=== PATIENT | male | born 1980 | race Caucasian/White ===

== ENCOUNTER 2017-10-25 09:15 | Observation (INO) | payer OTHER ==
[~2017-10-25] VITALS: Ht 185.4 cm; Wt 82.7 kg
--- OUTSIDE RECORDS SUMMARY | 2017-10-25 09:20 | XMS REPORT | Continuity of Care Document ---
Author Author [facility] Address Unknown Phone Unavailable Allergies There is no data. Medications There is no data. Problems Date Dx Coded Attending Type Code Diagnosis Diagnosed By 12/10/2014 WONG ROME DO 466.0 BRONCHITIS, ACUTE Procedures There is no data. Results There is no data. Encounters ACCT No. Visit Date/Time Discharge Status Pt. Type Provider Facility Loc./Unit Complaint [id number] 12/10/2014 13:39:00 12/10/2014 23:59:59 CLS Outpatient WONG ROME DO
--- OUTSIDE RECORDS SUMMARY | 2017-10-25 09:20 | XMS REPORT ---
Author LUIS FERNANDO Esquivel Organization [employer] Address Unknown Phone Unavailable Care Team Providers Care Carbonizer Tester Name Role Phone LUIS FERNANDO CONRAD CP Unavailable Allergies, Adverse Reactions, Alerts Substance Reaction Event Type N.K.D.A. Info Not Available Non Drug Allergy Problems Problem Type Condition Code Onset Dates Condition Status Assessment Elevated blood pressure reading without diagnosis of hypertension R03.0 Active Assessment Eczema, unspecified eczema L30.9 Active Assessment Routine adult health maintenance Z00.00 Active Assessment Ringworm B35.9 Active Assessment Ganglion cyst M67.40 Active Medications Medication Code System Code Instructions Start Date End Date Status Dosage Nystatin-Triamcinolone [facility] [id number] UNIT/GM-% Externally Twice a day Jun 25, 2015 Jul 23, 2015 1 application to affected area Procedures Procedure Coding System Code Date Office Visit, Est Pt., Level 4 CPT-4 22752 Jun 25, 2015 Vital Signs Date/Time: Jun 25, 2015 Temperature 98.4 F Weight 190.6 lbs Height 73 in BMI 25.14 Index Blood Pressure Diastolic 90 mmHg Blood Pressure Systolic 152 mmHg Cardiac Monitoring Heart Rate 90 bpm Results No Known Results Summary Purpose [employer] Submission
[2017-10-25] MEDS ORDERED: LORazepam INJ 2 MG/ML (ATIVAN) VIAL IVP ONE (10:00)
[2017-10-25] MEDS ORDERED: ASPIRIN 81 MG CHEW (CHILDREN'S ASA) PO ONE (10:00)
--- NOTE | 2017-10-25 10:02 | ED Chest Pain ---
General Chief Complaint: General Problems/Pain Stated Complaint: HIGH BP Nursing Triage Note: AMB TO ROOM REPORTS HAS NOT FELT WELL SINCE HAVING FLU 1 MONTH AGO. TODAY WAS WALKING UP AND DOWN STAIRS FELT DIZZY AND SOA AFTER Nursing Sepsis Screen: No Definite Risk Source: patient, family Exam Limitations: no limitations History of Present Illness Date Seen by Provider: Oct 25, 2017 Time Seen by Provider: 09:42 Initial Comments This 37-year-old gentleman presents to the emergency room after feeling dizzy and short of air walking up stairs. These are stairs he walks daily and has not had this problem in the past. He notes his blood pressure was significantly elevated with a systolic pressure up to 190 at home. He reports his systolic blood pressures usually in the 130s. He reports having an upper respiratory "chest cold" for 1-2 weeks. About a month ago he had a flulike syndrome as well. This morning he has had shortness of air, dizziness, disequilibrium, disorientation, subtle chest tightness, productive cough, and some vision changes. He states he can see the pulsation of his heart in his vision. Patient was sent to the ER from the [facility]. Patient admits to drinking 3 or 4 beers daily for many years. His long-term girlfriend confirms this usual quantity. His last alcohol consumption was last night. Patient also admits to marijuana use but denies any other recreational drugs. He drinks tea but denies any other use of stimulants. Patient reports having a similar episode of symptoms with high blood pressure about 10 years ago for which he was referred to [facility]. He reports his blood pressure has not been treated since then. Patient is a tobacco smoker. Allergies and Home Medications Allergies Coded Allergies: No Known Drug Allergies (Unverified , 10/25/17) Home Medications Metoprolol Succinate 100 Mg Tab.er.24h, 100 MG PO DAILY Prescribed by: JUAN LUIS FREIRE on 10/26/17 1057 Review of Systems Constitutional: no symptoms reported EENTM: See HPI Respiratory: See HPI Cardiovascular: See HPI Gastrointestinal: No Symptoms Reported Genitourinary: No Symptoms Reported Musculoskeletal: no symptoms reported Skin: no symptoms reported Psychiatric/Neurological: See HPI Endocrine: No Symptoms Reported Hematologic/Lymphatic: No Symptoms Reported Past Gycdxtr-Pqvfcq-Axhucr Hx Patient Social History Alcohol Use: Regular Use Number of Drinks Today: 4 Alcohol Beverage of Choice: Beer Recreational Drug Use: Yes Drug of Choice: marijuana Smoking Status: Current Everyday Smoker Recent Foreign Travel: No Contact w/Someone Who Travel: No Recent Infectious Disease Expo: No Surgeries History of Surgeries: No Respiratory History of Respiratory Disorde: No Cardiovascular History of Cardiac Disorders: Yes Cardiac Disorders: Hypertension Neurological History of Neurological Disord: No Genitourinary History of Genitourinary Disor: No Gastrointestinal History of Gastrointestinal Di: No Musculoskeletal History of Musculoskeletal Dis: No Endocrine History of Endocrine Disorders: No HEENT History of HEENT Disorders: No Cancer History of Cancer: No Psychosocial History of Psychiatric Problem: Yes (alcohol dependence) Integumentary History of Skin or Integumenta: No Blood Transfusions History of Blood Disorders: No Family Medical History Significant Family History: Diabetes Physical Exam Vital Signs Vital Signs - First Documented 10/25/17 10/25/17 09:19 11:17 Temp 98.4 Pulse 117 Resp 18 B/P (MAP) 169/90 (116) Pulse Ox 96 Capillary Refill : Less Than 3 Seconds General Appearance: No Apparent Distress, WD/WN HEENT: PERRL/EOMI, TMs Normal, Normal ENT Inspection Neck: Normal Inspection Respiratory: Lungs Clear, Normal Breath Sounds, No Accessory Muscle Use, No Respiratory Distress Cardiovascular: No Edema, No Murmur, Tachycardia Gastrointestinal: Normal Bowel Sounds, Non Tender, Soft Extremity: Normal Inspection, No Pedal Edema Neurologic/Psychiatric: Alert, Oriented x3, No Motor/Sensory Deficits, Normal 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 Finger to nose and heel to alegre normal) Skin: Normal Color, Warm/Dry Progress/Results/Core Measures Results/Orders Lab Results Laboratory Tests Test 10/25/17 09:21 10/25/17 10:31 Range/Units White Blood Count 10.3 4.3-11.0 10^3/uL Red Blood Count 5.35 4.35-5.85 10^6/uL Hemoglobin 16.9 13.3-17.7 G/DL Hematocrit 49 40-54 % Mean Corpuscular Volume 92 80-99 FL Mean Corpuscular Hemoglobin 32 25-34 PG Mean Corpuscular Hemoglobin Concent 34 32-36 G/DL Red Cell Distribution Width 12.5 10.0-14.5 % Platelet Count 174 130-400 10^3/uL Mean Platelet Volume 12.3 H 7.4-10.4 FL Neutrophils (%) (Auto) 62 42-75 % Lymphocytes (%) (Auto) 29 12-44 % Monocytes (%) (Auto) 8 0-12 % Eosinophils (%) (Auto) 1 0-10 % Basophils (%) (Auto) 0 0-10 % Neutrophils # (Auto) 6.4 1.8-7.8 X 10^3 Lymphocytes # (Auto) 3.0 1.0-4.0 X 10^3 Monocytes # (Auto) 0.8 0.0-1.0 X 10^3 Eosinophils # (Auto) 0.1 0.0-0.3 10^3/uL Basophils # (Auto) 0.0 0.0-0.1 10^3/uL Prothrombin Time 13.4 12.2-14.7 SEC INR Comment 1.0 0.8-1.4 Activated Partial Thromboplast Time 29 24-35 SEC D-Dimer 0.27 0.00-0.49 UG/ML Sodium Level 139 135-145 MMOL/L Potassium Level 3.7 3.6-5.0 MMOL/L Chloride Level 103 98-107 MMOL/L Carbon Dioxide Level 25 21-32 MMOL/L Anion Gap 11 5-14 MMOL/L Blood Urea Nitrogen 9 7-18 MG/DL Creatinine 0.77 0.60-1.30 MG/DL Estimat Glomerular Filtration Rate > 60 BUN/Creatinine Ratio 12 Glucose Level 114 H 70-105 MG/DL Calcium Level 9.4 8.5-10.1 MG/DL Magnesium Level 2.1 1.8-2.4 MG/DL Total Bilirubin 1.1 H 0.1-1.0 MG/DL Aspartate Amino Transf (AST/SGOT) 25 5-34 U/L Alanine Aminotransferase (ALT/SGPT) 26 0-55 U/L Alkaline Phosphatase 104 40-136 U/L Myoglobin 25.6 10.0-92.0 NG/ML Troponin I < 0.30 <0.30 NG/ML Total Protein 7.6 6.4-8.2 GM/DL Albumin 4.5 3.2-4.5 GM/DL Thyroid Stimulating Hormone (TSH) 0.82 0.35-4.94 UIU/ML Free Thyroxine 0.96 0.70-1.48 NG/DL Serum Alcohol < 10 <10 MG/DL Urine Opiates Screen NEGATIVE NEGATIVE Urine Oxycodone Screen NEGATIVE NEGATIVE Urine Methadone Screen NEGATIVE NEGATIVE Urine Propoxyphene Screen NEGATIVE NEGATIVE Urine Barbiturates Screen NEGATIVE NEGATIVE Ur Tricyclic Antidepressants Screen NEGATIVE NEGATIVE Urine Phencyclidine Screen NEGATIVE NEGATIVE Urine Amphetamines Screen NEGATIVE NEGATIVE Urine Methamphetamines Screen NEGATIVE NEGATIVE Urine Benzodiazepines Screen NEGATIVE NEGATIVE Urine Cocaine Screen NEGATIVE NEGATIVE Urine Cannabinoids Screen NEGATIVE NEGATIVE My Orders Orders - EDWARD MENJIVAR MD Cbc With Automated Diff (10/25/17 09:55) Magnesium (10/25/17 09:55) Ekg Tracing (10/25/17 09:55) Cardiac Profile 1 (10/25/17 09:55) Comprehensive Metabolic Panel (10/25/17 09:55) Myoglobin Serum (10/25/17 09:55) Protime With Inr (10/25/17 09:55) Partial Thromboplastin Time (10/25/17 09:55) O2 (10/25/17 09:55) Monitor-Rhythm Ecg Trace Only (10/25/17 09:55) Aspirin Chewable Tablet (Baby Aspirin Ch (10/25/17 10:00) Saline Lock/Iv-Start (10/25/17 09:55) Thyroid Stimulating Hormone (10/25/17 09:55) Free T4 (Free Thyroxine) (10/25/17 09:55) Alcohol (10/25/17 09:55) Fibrin Degradation Products (10/25/17 09:55) Drug Screen Stat (Urine) (10/25/17 09:55) Lorazepam Injection (Ativan Injection) (10/25/17 10:00) Chest Pa/Lat (2 View) (10/25/17 10:02) Ns Iv 1000 Ml (Sodium Chloride 0.9%) (10/25/17 11:05) Metoprolol Succinate (Xl) Tab (Toprol Xl (10/25/17 13:00) Medications Given in ED Vital Signs/I&O Vital Sign - Last 12Hours 10/25/17 10/25/17 09:19 11:17 Temp 98.4 Pulse 117 109 Resp 18 18 B/P (MAP) 169/90 (116) 139/92 (108) Pulse Ox 96 Intake and Output 10/26/17 00:00 Intake Total 1000 ml Balance 1000 ml Blood Pressure Mean: 116 Progress Note #1: Time: 10:09 Progress Note Patient seen and examined. Thorough workup is being pursued. Patient is tachycardic and hypertensive which could relate to daily alcohol consumption with no alcohol since last night. Ativan will be administered. Progress Note #2: Progress Note Patient's pressure did improve after Ativan. However, patient remained tachycardic. A liter of IV fluids was administered but he still remained tachycardic. Case was discussed with Dr. Rowell who would like the patient admitted. He recommended Toprol-XL 100 mg orally which was administered in the ER. Aspirin 324 mg was also administered in the ER. Patient was admitted to the medicine service with a cardiology consult. The alcohol withdrawal protocol was added to his orders. ECG Initial ECG Impression Date: Oct 25, 2017 Initial ECG Impression Time: 10:14 Initial ECG Rate: 101 Initial ECG Rhythm: S.Tach Comment Sinus tachycardia with no ST elevation or depression. No abnormal intervals or axis deviation. Diagnostic Imaging Diagonstic Imaging: Xray Plain Films/CT/US/NM/MRI: chest Comments Chest x-ray viewed by me and report reviewed. See report below: NAME: EDWARD MERIDA [facility] REC#: [id number] PT STATUS: REG ER : 1980 PHYSICIAN: EDWARD MENJIVAR MD ADMIT DATE: 10/25/17/ER Draft Date of Exam:10/25/17 CHEST PA/LAT (2 VIEW) INDICATION: Shortness of breath and hypertension. TECHNIQUE: PA and lateral films of the chest were obtained at 1059 hours. FINDINGS: The heart and mediastinal silhouette are normal in appearance. The lungs are clear. There is no pneumothorax or pleural fluid. IMPRESSION: Negative chest. Dictated on workstation # [id number] Dict: 10/25/17 1058 Trans: 10/25/17 1105 [id number] Interpreted by: MAURICIO KAY MD Departure Communication (Admissions) Time/Spoke to Admitting Phy: 13:10 Time/Spoke to Consulting Phy: 12:45 Impression Impression: Primary Impression: Chest tightness Additional Impressions: Hypertensive urgency Dyspnea on exertion Sinus tachycardia Alcohol dependence Qualified Codes: F10.239 - Alcohol dependence with withdrawal, unspecified Disposition: ADMITTED INPATIENT Condition: Improved Admissions Decision to Admit Reason: Admit from ER (General) Decision to Admit/Date: Oct 25, 2017 Time/Decision to Admit Time: 12:45 Departure-Patient Inst. Referrals: NO,LOCAL PHYSICIAN (PCP/Family) Primary Care Physician Scripts Metoprolol Succinate (Metoprolol Succinate) 100 Mg Tab.er.24h 100 MG PO DAILY, #30 TAB Prov: JUAN LUIS FREIRE DO 10/26/17 EDWARD MENJIVAR MD Oct 25, 2017 10:02
[2017-10-25 10:06] LABS: BASOPHILS % (AUTO) 0 % (0-10); EOSINOPHILS # (AUTO) 0.1 10^3/uL (0.0-0.3); EOSINOPHILS % (AUTO) 1 % (0-10); HEMATOCRIT 49 % (40-54); HEMOGLOBIN 16.9 G/DL (13.3-17.7); LYMPHOCYTES % (AUTO) 29 % (12-44); MEAN CORPUSCULAR HEMOGLOBIN 32 PG (25-34); MEAN CORPUSCULAR HGB CONC 34 G/DL (32-36); MEAN CORPUSCULAR VOLUME 92 FL (80-99); MEAN PLATELET VOLUME 12.3 FL (7.4-10.4); MONOCYTES # (AUTO) 0.8 X 10^3 (0.0-1.0); MONOCYTES % (AUTO) 8 % (0-12); NEUTROPHILS # (AUTO) 6.4 X 10^3 (1.8-7.8); NEUTROPHILS % (AUTO) 62 % (42-75); PLATELET COUNT 174 10^3/uL (130-400); RED BLOOD COUNT 5.35 10^6/uL (4.35-5.85); RED CELL DISTRIBUTION WIDTH 12.5 % (10.0-14.5); WHITE BLOOD COUNT 10.3 10^3/uL (4.3-11.0)
[2017-10-25 10:08] LABS: PROTHROMBIN TIME PATIENT 13.4 SEC (12.2-14.7)
[2017-10-25 10:17] LABS: ALANINE AMINOTRANSFERASE 26 U/L (0-55); ALBUMIN 4.5 GM/DL (3.2-4.5); ALKALINE PHOSPHATASE 104 U/L (40-136); BILIRUBIN,TOTAL 1.1 MG/DL (0.1-1.0); BUN/CREATININE RATIO 12; CALCIUM 9.4 MG/DL (8.5-10.1); CARBON DIOXIDE 25 MMOL/L (21-32); CHLORIDE 103 MMOL/L (98-107); CREATININE SERUM 0.77 MG/DL (0.60-1.30); GFR ESTIMATED > 60; GLUCOSE 114 MG/DL (70-105); MAGNESIUM 2.1 MG/DL (1.8-2.4); POTASSIUM 3.7 MMOL/L (3.6-5.0); SODIUM 139 MMOL/L (135-145); TOTAL PROTEIN 7.6 GM/DL (6.4-8.2)
[2017-10-25 10:38] LABS: MYOGLOBIN SERUM 25.6 NG/ML (10.0-92.0)
[2017-10-25 10:47] LABS: AMPHETAMINE SCREEN, URINE NEGATIVE (NEGATIVE); BARBITURATE SCREEN URINE NEGATIVE (NEGATIVE); BENZODIAZEPINES SCREEN URINE NEGATIVE (NEGATIVE); CANNABINOID SCREEN, URINE NEGATIVE (NEGATIVE); COCAINE SCREEN URINE NEGATIVE (NEGATIVE); METHADONE STAT NEGATIVE (NEGATIVE); METHAMPHETAMINE SCREEN URINE S NEGATIVE (NEGATIVE); OPIATE SCREEN URINE NEGATIVE (NEGATIVE); OXYCODONE STAT NEGATIVE (NEGATIVE); PROPOXYPHENE STAT NEGATIVE (NEGATIVE); TRICYCLIC ANTIDEPRESSANTS SCRE NEGATIVE (NEGATIVE)
[2017-10-25 11:00] LABS: FREE T4 (FREE THYROXINE) 0.96 NG/DL (0.70-1.48)
[2017-10-25] MEDS ORDERED: NS IV 1000 ML 1,000 ML IV ONE (11:05)
--- NOTE | 2017-10-25 11:05 | Diagnostic Imaging Report ---
INDICATION: Shortness of breath and hypertension. TECHNIQUE: PA and lateral films of the chest were obtained at 1059 hours. FINDINGS: The heart and mediastinal silhouette are normal in appearance. The lungs are clear. There is no pneumothorax or pleural fluid. IMPRESSION: Negative chest. Dictated by: Dictated on workstation # [id number]
[2017-10-25 11:17] VITALS: BP 139/92
[2017-10-25] MEDS ORDERED: meTOproloL SUCCINATE 50 MG (TOPROL XL) TAB PO SCH (13:00)
--- OUTSIDE RECORDS SUMMARY | 2017-10-25 14:07 | XMS REPORT | Continuity of Care Document ---
Author Author [facility] Address Unknown Phone Unavailable Allergies There is no data. Medications There is no data. Problems Date Dx Coded Attending Type Code Diagnosis Diagnosed By 12/10/2014 WONG ROME DO 466.0 BRONCHITIS, ACUTE Procedures There is no data. Results There is no data. Encounters ACCT No. Visit Date/Time Discharge Status Pt. Type Provider Facility Loc./Unit Complaint [id number] 12/10/2014 13:39:00 12/10/2014 23:59:59 CLS Outpatient WONG ROME DO
[2017-10-25] MEDS ORDERED: ONDANSETRON 4 MG (ZOFRAN) ORAL DISSOLVE TAB PO PRN (15:00)
[2017-10-25] MEDS ORDERED: SENNA W/DOCUSATE (SENOKOT S) TABLET PO PRN (15:00)
[2017-10-25] MEDS ORDERED: ONDANSETRON 4 MG/2 ML (SDV) Z0FRAN IV PRN (15:00)
[2017-10-25] MEDS ORDERED: LORazepam INJ 2 MG/ML (ATIVAN) VIAL IM/IV PRN (15:00)
[2017-10-25] MEDS ORDERED: ANTACID SUSP 30 ML UDC (MYLANTA) PO PRN (15:00)
--- NOTE | 2017-10-25 15:19 | Consultation-Cardiology ---
HPI-Cardiology Cardiology Consultation: Date of Consultation 10/25/17 Time Seen by Provider: 14:45 Date of Admission 10-25-17 Attending Physician Darron Colon MD Admitting Physician Elizabeth,Local Physician Consulting Physician DIVYA MCCULLOUGH HPI: Chief Complaint: Dyspnea Chest pressure Palpitations Mr. Merida is a 37 year old male admitted to ICU 4 from the ED with c/o dyspnea , chest tightness, palpitations, dizziness and hypertension. 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 He reports he was coming down the stairs when he became dizzy and lightheaded. He reports a sudden onset of dyspnea and palpitations. He also reports some tightness in his chest at the time. He states he felt that his blood pressure was elevated. He sat down for approx 30 minutes and was not feeling any better. He then came to the ED. He states by the time he arrived to the ED he felt his symptoms were worse. He is currently pain free and is not reporting any shortness of breath. He denies any n/v/d. He denies any syncope or near syncope. He denies any recent fever or chills. He states he has had an URI for which he has not been taking any medications for. He states he has had a frequent productive cough of thick yellowish-green sputum. No c/o LE edema. Review of Systems-Cardiology Review of Systems Constitutional: No chills, No fever, No malaise Eyes: No vision change Ears/Nose/Throat: No epistaxis Respiratory: As described under HPI Cardiovascular: As described under HPI Gastrointestinal: No diarrhea, No nausea, No vomiting Genitourinary: No dysuria, No hematuria Musculoskeletal: joint pain (chronic joint pain) Skin: No rash, No ulcerations Psychiatric/Neurological: anxiety, No seizure, No syncope Hematologic: No bleeding abnormalities [id number] Hx Patient Social History Alcohol Use: Regular Use Recreational Drug Use: Yes Drug of Choice: marijuana Smoking Status: Current Everyday Smoker Recent Foreign Travel: No Recent Infectious Disease Expo: No Hospitalization with Isolation: Denies Past Medical History PMH As described under Assessment. Family Medical History Family Medical History: He reports his father was recently diagnosed with diabetes. No reported family h/o CAD. No reported h/o SCD. Allergies and Home Medications Allergies Coded Allergies: No Known Drug Allergies (Unverified , 10/25/17) Home Medications No Active Prescriptions or Reported Meds Physical Exam-Cardiology Physical Exam Vital Signs/I&O Vital Sign - Last 12Hours 10/25/17 10/25/17 10/25/17 09:19 11:17 14:38 Temp 98.4 Pulse 117 109 79 Resp 18 B/P (MAP) 169/90 (116) 139/92 (108) 142/89 Pulse Ox 96 98 O2 Delivery Room Air Capillary Refill : Less Than 3 Seconds Constitutional: AAO x 3, well-developed, well-nourished HEENT: PERRL, hearing is well preserved, oral hygience is good, No xanthelasmas are seen Neck: No carotid bruit, carotid pulses are 2 + bilaterally Respiratory: No accessory muscle use, No respiratory distress, chest expansion is symmetric, chest is bilaterally symmetric, lungs clear to auscultation Cardiovascular: regular rate-rhythm, No JVD, S1 and S2 Gastrointestinal: No tender, soft, round, audible bowel sounds Extremities: no lower extremity edema bilateral Neurologic/Psychiatric: grossly intact, power is 5/5 both on sides Skin: No rash, No ulcerations Data Review Labs Laboratory Tests 10/25/17 09:21: White Blood Count 10.3, Red Blood Count 5.35, Hemoglobin 16.9, Hematocrit 49, Mean Corpuscular Volume 92, Mean Corpuscular Hemoglobin 32, Mean Corpuscular Hemoglobin Concent 34, Red Cell Distribution Width 12.5, Platelet Count 174, Mean Platelet Volume 12.3H, Neutrophils (%) (Auto) 62, Lymphocytes (%) (Auto) 29 , Monocytes (%) (Auto) 8, Eosinophils (%) (Auto) 1, Basophils (%) (Auto) 0, Neutrophils # (Auto) 6.4, Lymphocytes # (Auto) 3.0, Monocytes # (Auto) 0.8, Eosinophils # (Auto) 0.1, Basophils # (Auto) 0.0, Prothrombin Time 13.4, INR Comment 1.0, Activated Partial Thromboplast Time 29, D-Dimer 0.27, Sodium Level 139, Potassium Level 3.7, Chloride Level 103, Carbon Dioxide Level 25, Anion Gap 11, Blood Urea Nitrogen 9, Creatinine 0.77, Estimat Glomerular Filtration Rate > 60, BUN/Creatinine Ratio 12, Glucose Level 114H, Calcium Level 9.4, Magnesium Level 2.1, Total Bilirubin 1.1H, Aspartate Amino Transf (AST/SGOT) 25 , Alanine Aminotransferase (ALT/SGPT) 26, Alkaline Phosphatase 104, Myoglobin 25.6, Troponin I < 0.30, Total Protein 7.6, Albumin 4.5, Thyroid Stimulating Hormone (TSH) 0.82, Free Thyroxine 0.96, Serum Alcohol < 10 10/25/17 10:31: Urine Opiates Screen NEGATIVE, Urine Oxycodone Screen NEGATIVE, Urine Methadone Screen NEGATIVE, Urine Propoxyphene Screen NEGATIVE, Urine Barbiturates Screen NEGATIVE, Ur Tricyclic Antidepressants Screen NEGATIVE, Urine Phencyclidine Screen NEGATIVE, Urine Amphetamines Screen NEGATIVE, Urine Methamphetamines Screen NEGATIVE, Urine Benzodiazepines Screen NEGATIVE, Urine Cocaine Screen NEGATIVE, Urine Cannabinoids Screen NEGATIVE Radiology NAME: EDWARD MERIDA MED REC#: [id number] PT STATUS: REG ER : 1980 PHYSICIAN: EDWARD MENJIVAR MD ADMIT DATE: 10/25/17/ER Draft Date of Exam:10/25/17 CHEST PA/LAT (2 VIEW) INDICATION: Shortness of breath and hypertension. TECHNIQUE: PA and lateral films of the chest were obtained at 1059 hours. FINDINGS: The heart and mediastinal silhouette are normal in appearance. The lungs are clear. There is no pneumothorax or pleural fluid. IMPRESSION: Negative chest. Dictated on workstation # [id number] Dict: 10/25/17 1058 Trans: 10/25/17 1105 [id number] Interpreted by: MAURICIO KAY MD Electronically signed by: ECG Impression ECG Initial ECG Rhythm: S.Tach A/P-Cardiology Assessment/Admission Diagnosis Chest pressure of undetermined etiology New onset of exertional dyspnea of undetermined etiology Palpitations - sinus tachycardia HTN - reports "borderline", but has not been on tx Tobaccoism - cessation advised Frequent ETOH use - reports 2-3 beer per night TSH 0.85 on lab of 10-25-17 Discussion and Recomendations Based on his symptoms and risk factors as listed above we advise further cardiac work up We advise exercise cardiolite to evaluate perfusion We advise echocardiogram to evaluate structure F/U on lab in the morning Advise risk factor modification and immediate and complete smoking cessation Advise immediate ETOH cessation Treatment of hypertension with Toprol XL which has improved his BP We would like to thank medical services for this consult Further recs will be based on his hospital course. This consult is being scribed by Chloe Hart APRN on behalf of Dr. Rowell after discussion regarding plan of care Physician Assessment Physician Assessment Has had symptoms of shortness of breath and palp and chest discomfort, as described above Lungs: clear Cor: reg Ext: no c/c/e A&R * As documented in our note above that I updated (italics) at the time of this writing * BB for rate control * Echo to eval for structural heart disease * ETT MPI to eval for cor ischemia * Advised to quit tobacco use immediately and completely * Monitor labs * I had a detailed discussion with him and his and answered questions DIVYA HART [employer] Oct 25, 2017 15:19 GERALDO ROWELL MD FACP FAC CCDS Oct 25, 2017 17:50
[2017-10-25] MEDS: D5 1/2 NS 1000 ML IV SOLUTION 1,000 ML IV SCH (15:31)
[2017-10-25] MEDS ORDERED: INFLUENZA TRIvalent 2017-2018 0.5 ML/45 MCG SYR IM ONE (16:45)
[2017-10-25] MEDS: FOLIC ACID 1 MG TAB PO SCH (17:15)
[2017-10-25] MEDS: MAGNESIUM OXIDE (MAG-OX)400 MG TAB PO SCH (17:15)
[2017-10-25] MEDS: THIAMINE 100 MG (VITAMIN B-1) TAB PO SCH (17:15)
[2017-10-25 20:00] VITALS: BP 133/84
[2017-10-25 22:45] VITALS: BP 134/86
[2017-10-26] VITALS: BP 134/82
[2017-10-26 04:00] VITALS: BP 134/63
[2017-10-26] MEDS: D5 1/2 NS 1000 ML IV SOLUTION 1,000 ML IV SCH (04:45)
[2017-10-26 06:19] LABS: BUN/CREATININE RATIO 11; CALCIUM 9.1 MG/DL (8.5-10.1); CARBON DIOXIDE 24 MMOL/L (21-32); CHLORIDE 107 MMOL/L (98-107); CHOLESTEROL 206 MG/DL (< 200); CREATININE SERUM 0.73 MG/DL (0.60-1.30); GFR ESTIMATED > 60; GLUCOSE 104 MG/DL (70-105); HDL CHOLESTEROL 43 MG/DL (40-60); MAGNESIUM 2.5 MG/DL (1.8-2.4); POTASSIUM 4.6 MMOL/L (3.6-5.0); SODIUM 140 MMOL/L (135-145); TRIGLYCERIDES 116 MG/DL (<150); VLDL CHOLESTEROL 23 MG/DL (5-40)
[2017-10-26] MEDS ORDERED: MULTIVIT W/MINERALS TAB (THERAGRAN M) PO SCH (07:00)
[2017-10-26] MEDS ORDERED: CATHETER FLUSH 10 ML SYR IV PRN (07:00)
[2017-10-26 08:03] VITALS: BP 103/83
--- NOTE | 2017-10-26 08:28 | Progress Note-Cardiology ---
Cardiology SOAP Progress Note Subjective: No further c/o chest tightness. C/O congestion. No c/o palpitations, syncope or near syncope. Objective: I&O/Vital Signs Vital Sign - Last 12Hours 10/26/17 10/26/17 10/26/17 10/26/17 04:00 04:00 07:00 08:03 Temp 96.8 Pulse 76 85 100 Resp 18 16 B/P (MAP) 134/63 (86) 103/83 (90) Pulse Ox 96 97 97 O2 Delivery Room Air Room Air Room Air 10/26/17 10/26/17 10/26/17 09:26 09:43 11:10 Temp 98.1 98.7 Pulse 85 83 Resp 20 20 B/P (MAP) 135/88 (104) 120/74 (89) Pulse Ox 96 96 O2 Delivery Room Air Room Air Room Air Intake and Output 10/26/17 00:00 Intake Total 1500 ml Output Total 900 ml Balance 600 ml Weight (Pounds): 182 Weight (Ounces): 5.0 Weight (Calculated Kilograms): 82.756638 Constitutional: AAO x 3, well-developed, well-nourished Respiratory: No accessory muscle use, No respiratory distress, chest expansion is symmetric, chest is bilaterally symmetric, lungs clear to auscultation Cardiovascular: regular rate-rhythm, No JVD, S1 and S2 Gastrointestional: No tender, soft, round, audible bowel sounds Extremities: no lower extremity edema bilateral Neurologic/Psychiatric: grossly intact, power is 5/5 both on sides Skin: No rash, No ulcerations Results/Procedures: Labs Laboratory Tests 10/26/17 05:40: Sodium Level 140, Potassium Level 4.6, Chloride Level 107, Carbon Dioxide Level 24, Anion Gap 9, Blood Urea Nitrogen 8, Creatinine 0.73, Estimat Glomerular Filtration Rate > 60, BUN/Creatinine Ratio 11, Glucose Level 104, Calcium Level 9.1, Magnesium Level 2.5H, Triglycerides Level 116, Cholesterol Level 206H, LDL Cholesterol Direct 147H, VLDL Cholesterol 23, HDL Cholesterol 43 A/P: Assessment: Chest pressure of undetermined etiology. No evidence of ACS ETT MPI of 10/26/17: No ischemia or infarction, LVEF normal Palpitations - sinus tachycardia. No malignant arrhythmia seen on ETT or tele HTN - controlled on current regimen Tobaccoism - cessation advised Frequent ETOH use - reports 2-3 beer per night TSH 0.85 on lab of 10-25-17 Plan: MPI this morning - results pending Echocardiogram - results pending Advise risk factor modification and immediate and complete smoking cessation Advise immediate ETOH cessation Continue current regimen Physician Assessment Physician Assessment No cp or palp or shortness of breath or syncope. Wishes to go [place] Lungs: clear Cor: reg A&R * As documented in our note above that I updated (italics) * We reviewed and discussed his hosp course and results of ETT MPI and tele * We have advised immediate and complete smoking cessation and avoidance of alcohol use * We have relatively close outpatient f/u now * Has tolerated bb well with good bp control. Continue * We answered his questions in detail DIVYA CAICEDO Oct 26, 2017 08:28 GERALDO WEINBERG MD FACP FAC CCDS Oct 26, 2017 13:14
[2017-10-26] MEDS ORDERED: meTOprolol SUCCINATE 100 MG (TOPROL XL) TAB PO SCH (09:00)
[2017-10-26] MEDS ORDERED: ASPIRIN 81 MG CHEW (CHILDREN'S ASA) PO SCH (09:00)
[2017-10-26 09:26] VITALS: BP 135/88
[2017-10-26] MEDS: MAGNESIUM OXIDE (MAG-OX)400 MG TAB PO SCH (09:29)
[2017-10-26] MEDS: FOLIC ACID 1 MG TAB PO SCH (09:29)
[2017-10-26] MEDS: THIAMINE 100 MG (VITAMIN B-1) TAB PO SCH (09:29)
[2017-10-26] MEDS ORDERED: METO-395 PO (10:57)
[2017-10-26 11:10] VITALS: BP 120/74
--- NOTE | 2017-10-26 11:20 | Short Stay Summary-Hospitalist ---
HPI History of Present Illness: HPI/Chief Complaint CC: Chest Pain HPI: This is a 37 yoWM pt who presented to the ER with chest pain from [facility] following a seasonal illness. Pt Interview: Pt was informed that I will have everything prepared for him to DC after Dr. Rowell gives approval. Pt was informed that Dr. Rowell will see him this afternoon. Pt confirms [facility] as pharmacy and I informed the pt that I will have his Metoprolol sent there. 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) Alcohol Use: Regular Use Number of Drinks Today: 4 Alcohol Beverage of Choice: Beer Recreational Drug Use: Yes Drug of Choice: marijuana Smoking Status: Current Everyday Smoker Type Used: Cigarettes Physical Abuse Screen: No Sexual Abuse: No Recent Foreign Travel: No Contact w/other who traveled: No Recent Hopitalizations: No Recent Infectious Disease Expo: No Seasonal Allergies Seasonal Allergies: No Surgeries No Respiratory No Cardiovascular No Neurological No Genitourinary No Gastrointestinal No Musculoskeletal No Endocrine History of Endocrine Disorders: No HEENT History of HEENT Disorders: No Cancer No Psychosocial History of Psychiatric Problem: No Integumentary History of Skin or Integumenta: No Blood Transfusions History of Blood Disorders: No Family Medical History Significant Family History: Diabetes Family Hx: Diabetes mellitus 19 FATHER Review of Systems Constitutional: see HPI EENTM: no symptoms reported Respiratory: no symptoms reported Cardiovascular: chest pain Gastrointestinal: no symptoms reported Musculoskeletal: no symptoms reported Skin: no symptoms reported Psychiatric/Neurological: No Symptoms Reported All Other Systems Reviewed Negative Unless Noted: Yes Physical Exam Physical Exam Vital Signs Vital Signs - First Documented 10/25/17 10/25/17 10/25/17 09:19 11:17 14:38 Temp 98.4 Pulse 117 Resp 18 B/P (MAP) 169/90 (116) Pulse Ox 96 O2 Delivery Room Air Capillary Refill : Less Than 3 SecondsLess Than 3 Seconds General Appearance: No Apparent Distress, WD/WN Eyes: Bilateral Eye Normal Inspection, Bilateral Eye PERRL HEENT: PERRL/EOMI, Normal ENT Inspection, Pharynx Normal Neck: Full Range of Motion, Normal Inspection, Non Tender, Supple, Carotid Bruit Respiratory: Chest Non Tender, Lungs Clear, Normal Breath Sounds, No Accessory Muscle Use, No Respiratory Distress Cardiovascular: Regular Rate, Rhythm, No Edema, No Gallop, No JVD, No Murmur, Normal Peripheral Pulses Gastrointestinal: Normal Bowel Sounds, No Organomegaly, No Pulsatile Mass, Non Tender, Soft Back: Normal Inspection, No CVA Tenderness, No Vertebral Tenderness Extremity: Normal Capillary Refill, Normal Inspection, Normal Range of Motion, Non Tender, No Calf Tenderness, No Pedal Edema Neurologic/Psychiatric: Alert, Oriented x3, No Motor/Sensory Deficits, Normal Mood/Affect Skin: Normal Color, Warm/Dry Lymphatic: No Adenopathy Results Results/Procedures Lab Laboratory Tests 10/25/17 09:21 10/26/17 05:40 Short Stay Diagnosis Discharge Diagnosis-Short Stay Admission Diagnosis Chest pain Smoker Final Discharge Diagnosis Chest pain Smoker Conclusion Plan Plan: Confer with Dr. Rowell on DC after stress test results known Metoprolol to [facility] Clinical Quality Measures DVT/VTE Risk/Contraindication: Risk Factor Score Per Nursin RFS Level Per Nursing on Admit: 1=Low/No VTE PPX JUAN LUIS FREIRE DO Oct 26, 2017 11:20
--- NOTE | 2017-10-26 15:26 | STRESS TEST ---
DATE OF SERVICE: 10/26/2017 PROCEDURE: Resting and post-exercise technetium-99m Tetrofosmin SPECT CT imaging. Baseline images were carried out after injection of 10.89 mCi of technetium-99m Tetrofosmin. This was followed by exercise on a treadmill. Rian protocol was employed. Heart rate and blood pressure responses to exercise were normal. No significant arrhythmia was seen. After he had attained 85% of maximum predicted heart rate, 30.6 mCi technetium-99m Tetrofosmin was injected and the exercise was continued for approximately another minute. Test was stopped on account of fatigue. There was no significant arrhythmia. He attained 89% of maximum predicted heart rate and 12.1 METS of workload. There was no significant ST segment deviation with exercise. Review of images at rest and following stress does not indicate any significant perfusion defects consistent with significant myocardial ischemia or infarction. Gated images show normal global left ventricular systolic function with normal regional wall motion. Left ventricular ejection fraction is calculated to be 58%. Left ventricular end diastolic volume is 89 mL and TID is absent (0.99). CONCLUSIONS: 1. There was no evidence of any significant myocardial ischemia or infarction on this study. 2. Normal regional wall motion. 3. Normal global left ventricular systolic function with a calculated ejection fraction of 58% and normal left ventricular cavity size. Job ID: [id number] DocumentID: [id number] Dictated Date: 10/26/2017 12:54:15 Human Service Coordinator Date: 10/26/2017 15:25:20 Dictated By: GERALDO WEINBERG MD, MA, FACP, FACC,
== END 2017-10-26 10:59 | disposition home or self-care (01) ==
LOC: EDUNIT# 09:15 → ER 09:17 → UNDOADMOB 13:14 → ICU 13:14 → 4TH 22:37 → UNDODISOB 10-26 13:31
PROVIDERS: ADMIT Internal Medicine; ATTEND Internal Medicine
DX: R07.9 Chest pain, unspecified (principal); F17.210 Nicotine dependence, cigarettes, uncomplicated; R00.0 Tachycardia, unspecified; I16.0 Hypertensive urgency; Z79.899 Other long term (current) drug therapy; F10.239 Alcohol dependence with withdrawal, unspecified
CPT/HCPCS: 36415; 71046; 78452; 80048; 80053; 80061; 80306; 80320; 83735; 83874; 84439; 84443; 84484; 85025; 85379; 85610; 85730; 93005; 93017; 93041; 93306; 96361; 96374